=== PATIENT | male | born 1995 | race Caucasian/White ===

== ENCOUNTER → 2017-08-05 | Outpatient (CLI) | payer BC | LOC: COL.RAD 07-31 11:06 | DX: N13.0 Hydronephrosis with ureteropelvic junction obstruction (principal) | CPT/HCPCS: A9562; J1940 ==

== ENCOUNTER 2017-08-23 08:25 | Inpatient (IN) | payer BC ==
[~2017-08-23] VITALS: Ht 172.7 cm; Wt 69.8 kg
[2017-09-17] VITALS (10 sets, daily range): BP systolic 110–134; BP diastolic 40–76; PULSE 66–98; TEMP 97.2–98.1
[2017-09-17] MEDS ORDERED: PERC2.5TAB PO (11:35)
[2017-09-18 00:56] VITALS: BP 102/39; PULSE 57; TEMP 98.2
[2017-09-18 03:43] VITALS: BP 122/67; PULSE 56; TEMP 97.8
[2017-09-18 08:07] VITALS: BP 116/67; PULSE 59; TEMP 97.6
[2017-09-18 11:15] VITALS: BP 105/53; PULSE 59; TEMP 97.6
== END 2017-09-18 14:45 | disposition home or self-care (01) | DRG 660 ==
LOC: INPTSU 09-17 11:08 → SURG 09-17 12:30
PROVIDERS: Urology
PROC: 8E0W4CZ Robotic Assisted Procedure of Trunk Region, Percutaneous Endoscopic Approach (ICD-10-PCS; 2017-09-17)
PROC: 0T778DZ Dilation of Left Ureter with Intraluminal Device, Via Natural or Artificial Opening Endoscopic (ICD-10-PCS; 2017-09-17)
PROC: 0TC44ZZ Extirpation of Matter from Left Kidney Pelvis, Percutaneous Endoscopic Approach (ICD-10-PCS; principal; 2017-09-17 13:00)
PROC: 0TQ44ZZ Repair Left Kidney Pelvis, Percutaneous Endoscopic Approach (ICD-10-PCS; 2017-09-17 13:00)
DX: N13.0 Hydronephrosis with ureteropelvic junction obstruction (principal); F17.290 Nicotine dependence, other tobacco product, uncomplicated
CPT/HCPCS: A4314; A9284; C1729; C1769; C2617; J0690; J1100; J1170; J1885; J2405; J2704; J3010; J7120